=== PATIENT | male | born 1985 | race Caucasian/White ===

== ENCOUNTER 2017-04-25 13:36 | Emergency (ER) | payer OTHER ==
[~2017-04-25] VITALS: Ht 167.6 cm; Wt 90.5 kg
[2017-04-25] MEDS ORDERED: MUPIROCIN CALCIUM 2% 22 GM OINTMENT TP ONE (16:30)
[2017-04-25] MEDS ORDERED: IBUPROFEN 800 MG TABLET PO ONE (16:30)
[2017-04-25] MEDS ORDERED: SULFAMETHOX/TRIMETH DS 800-160 MG/TABLET PO ONE (16:30)
[2017-04-25] MEDS ORDERED: POVIDONE-IODINE 10% 15 ML SOLUTION UD TP ONE (16:30)
[2017-04-25] MEDS ORDERED: CEPHALEXIN MONOHYDRATE 500 MG CAPSULE PO ONE (16:30)
[2017-04-25 16:57] VITALS: BP 128/84
== END 2017-04-25 17:00 | disposition home or self-care (01) ==
LOC: EMS 13:37
DX: L03.113 Cellulitis of right upper limb (principal); L98.9 Disorder of the skin and subcutaneous tissue, unspecified; M79.89 Other specified soft tissue disorders; J45.909 Unspecified asthma, uncomplicated; F12.90 Cannabis use, unspecified, uncomplicated
CPT/HCPCS: 99284

== ENCOUNTER 2022-12-26 10:59 | Emergency (ER) | payer OTHER ==
[~2022-12-26] VITALS: Ht 167.6 cm; Wt 100.0 kg
[2022-12-26] MEDS ORDERED: PredniSONE 20 MG TABLET PO ONE (11:45)
[2022-12-26] MEDS ORDERED: DiphenhydrAMINE HCL 50 MG CAPSULE PO ONE (11:45)
[2022-12-26] MEDS ORDERED: ACETAMINOPHEN 500 MG TABLET PO ONE (11:45)
[2022-12-26 12:04] LABS: COVID AG,FIA SOURCE NASOPHARYNGEAL
[2022-12-26 12:11] LABS: INFLUENZA TYPE A NEGATIVE FOR TYPE A (NEGATIVE); INFLUENZA TYPE B NEGATIVE FOR TYPE B (NEGATIVE)
[2022-12-26 12:28] LABS: SARS-COV2 (COVID) ANTIGEN,FIA Positive (Negative)
[2022-12-26] MEDS ORDERED: EPIN0.3P3 IM (12:34)
[2022-12-26] MEDS ORDERED: PRED-554 PO (12:34)
[2022-12-26] MEDS ORDERED: DIPH25CA85 PO (12:34)
[2022-12-26] MEDS ORDERED: ACET-3385 PO (12:34)
[2022-12-26 13:19] VITALS: BP 119/54; PULSE 84; RESP 18; TEMP 98.6
== END 2022-12-26 13:51 | disposition home or self-care (01) ==
LOC: EMS 10:59
DX: U07.1 COVID-19 (principal); L50.9 Urticaria, unspecified; R09.89 Other specified symptoms and signs involving the circulatory and respiratory systems; T39.315A Adverse effect of propionic acid derivatives, initial encounter; F12.90 Cannabis use, unspecified, uncomplicated; J45.909 Unspecified asthma, uncomplicated; Y92.89 Other specified places as the place of occurrence of the external cause
CPT/HCPCS: 99284; 87426; 87804; J7512